=== PATIENT | female | born 1955 | race Caucasian/White ===

== ENCOUNTER → 2018-11-07 09:15 | Outpatient (CLI) | payer OTHER, MEDICAID, SELFPAY ==
[2018-11-07 10:12] LABS: Add Manual Diff / Slide Review NO; Basophils Absolute Auto 100 /uL (0-100); Basophils Percent Auto 0.7 % (0-2); Eosinophils Absolute Auto 900 /uL (0-450); Eosinophils Percent Auto 10.7 % (2-4); Hematocrit 36.7 % (36-46); Hemoglobin 12.1 g/dL (12.0-16.0); Lymphocytes Absolute Auto 2500 /uL (1100-4500); Mean Corpuscular Hemoglobin 27.5 PG (26-34); Mean Corpuscular Volume 83.3 fL (80-100); Monocytes Absolute Auto 700 /uL (0-900); Monocytes Percent Auto 8.8 % (3-14); Neutrophils Absolute Auto 3900 /uL (1500-7000); Neutrophils Percent Auto 48.8 % (50-75); Platelet Count 300 X10^3/uL (150-400); Red Blood Cell Count 4.41 X10^6/uL (4.0-5.2); Red Cell Distribution Width 14.6 % (11.6-14.8); White Blood Cell Count 8.1 X10^3/uL (4.5-11.0)
[2018-11-07 10:31] LABS: Alanine Aminotransferase 24 IU/L (9-52); Albumin 3.9 g/dL (3.5-5.0); Albumin Globulin Ratio 1.3 (1.0-2.8); Alkaline Phosphatase 84 U/L (38-126); Aspartate Aminotransferase 17 IU/L (14-36); BUN Creatinine Ratio 24.3 (6-22); Bilirubin Total 0.3 mg/dL (0.2-1.3); Blood Urea Nitrogen 17 mg/dL (7-17); Calcium 9.5 mg/dL (8.4-10.2); Carbon Dioxide 29 mmol/L (22-32); Chloride 102 mmol/L (98-107); Estimated Glomerular Filt Rate > 60.0 mL/min (>60); Glucose 162 mg/dL (80-110); HEMOLYSIS < 15 (0-50); Potassium 4.6 mmol/L (3.4-5.1); Sodium 138 mmol/L (137-145); Total Protein 6.9 g/dL (6.3-8.2)
[2018-11-07 10:57] LABS: Ferritin 8.1 ng/mL (11.1-264)
[2018-11-07 11:11] LABS: Vitamin B12 > 1000 pg/mL (239-931)
[2018-11-07 11:27] LABS: TSH w/ Reflex to FT4 3.52 uIU/mL (0.47-4.68)
[2018-11-07 11:54] LABS: Hemoglobin A1C% w Est Avg Glu 7.5 % (4.0-6.0)
== END ==
PROVIDERS: Family Provider Family Medicine; PCP Family Medicine; Visit Provider Family Medicine
DX: R10.9 Unspecified abdominal pain (principal); R53.83 Other fatigue; E66.9 Obesity, unspecified; I10 Essential (primary) hypertension; Z98.84 Bariatric surgery status
CPT/HCPCS: 36415; 80053; 82607; 82728; 83036; 84443; 85025

== ENCOUNTER → 2018-12-19 14:46 | Outpatient (CLI) | payer OTHER, MEDICAID, SELFPAY ==
--- NOTE | 2018-12-19 | DI.CT.S_ITS ---
PROCEDURE: CT ABDOMEN PELVIS W CON INDICATIONS: diseases of the digestive system TECHNIQUE: After the administration of oral and intravenous contrast, 5 mm thick sections acquired from the diaphragms to the symphysis. 5 mm thick coronal and sagittal reformats were performed. For radiation dose reduction, the following was used: automated exposure control, adjustment of mA and/or kV according to patient size. COMPARISON: None. FINDINGS: Image quality: Excellent. ABDOMEN: Lung bases: No acute consolidation. Scattered subsegmental atelectasis and/or scarring . Heart size is normal. Solid organs: Liver is normal in size and enhancement. Gallbladder surgically absent. Biliary system is non-dilated. Mild peripancreatic hazy attenuation at the head of the pancreas although this could be due to fatty infiltration. Spleen is normal in size and enhancement. No adrenal nodules. Kidneys are normal in size and enhancement, without hydronephrosis. Peritoneum and bowel: Postsurgical change involving the stomach. No evidence of bowel obstruction. No free fluid or air. Nodes and vessels: No retroperitoneal or mesenteric adenopathy. Aorta and inferior vena cava are normal in caliber. Miscellaneous: No definite ventral hernia is seen however there is a somewhat rim-enhancing fluid collection measuring approximately 4.2 x 3.3 cm on image 56 series 2. Unclear if this communicates with the peritoneal cavity. This is located in the superficial subcutaneous soft tissues PELVIS: Genitourinary: The Miscellaneous: No inguinal hernias or adenopathy. Bones: No suspicious bony lesions. No vertebral body compression fractures. IMPRESSION: No definite ventral hernia although loculated fluid collection in the midline anterior abdominal subcutaneous soft tissues raises possibility of postoperative seroma, hematoma (bland or infected). This closely abuts however may not communicate with the peritoneal cavity. Hazy attenuation in the region of the pancreatic head. Please correlate with pancreatic enzymes to exclude pancreatitis. Dictated by: Nikolas Peñaloza M.D. on 12/19/2018 at 16:36 Approved by: Nikolas Peñaloza M.D. on 12/19/2018 at 16:47
[2018-12-19 15:24] LABS: Hemoglobin A1C% w Est Avg Glu 7.7 % (4.0-6.0)
[2018-12-19 15:32] LABS: Alanine Aminotransferase 22 IU/L (9-52); Albumin 4.2 g/dL (3.5-5.0); Albumin Globulin Ratio 1.3 (1.0-2.8); Alkaline Phosphatase 88 U/L (38-126); Aspartate Aminotransferase 22 IU/L (14-36); BUN Creatinine Ratio 28.6 (6-22); Bilirubin Total 0.4 mg/dL (0.2-1.3); Blood Urea Nitrogen 20 mg/dL (7-17); Calcium 9.3 mg/dL (8.4-10.2); Carbon Dioxide 27 mmol/L (22-32); Chloride 103 mmol/L (98-107); Estimated Glomerular Filt Rate > 60.0 mL/min (>60); Globulin 3.3 g/dL (1.7-4.1); Glucose 122 mg/dL (80-110); HEMOLYSIS 38 (0-50); Potassium 4.5 mmol/L (3.4-5.1); Sodium 139 mmol/L (137-145); Total Protein 7.5 g/dL (6.3-8.2)
[2018-12-19 16:07] LABS: Ferritin 8.4 ng/mL (11.1-264)
== END ==
PROVIDERS: Family Provider Family Medicine; PCP Family Medicine; Visit Provider Surgery
DX: K92.9 Disease of digestive system, unspecified (principal); E03.9 Hypothyroidism, unspecified; R73.9 Hyperglycemia, unspecified; Z90.49 Acquired absence of other specified parts of digestive tract; Z98.890 Other specified postprocedural states
CPT/HCPCS: 36415; 74177; 80053; 82728; 83036; 84443; Q9967

== ENCOUNTER → 2019-02-11 12:53 | Outpatient (CLI) | payer OTHER, MEDICAID, SELFPAY ==
--- NOTE | 2019-02-11 12:58 | DI.RAD.S_ITS ---
PROCEDURE: FL UPPER GI SMALL BOWEL INDICATIONS: bloating and change in bowels COMPARISON: [facility], , UGI WITH SM BOWEL FOLLOW THRU, 12/14/2016, 8:07. 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 No suspicious abdominal calcifications. Visualized solid organ contours appear normal in size. No suspicious bony abnormalities. Esophagus: Air-contrast views demonstrate a normal mucosal pattern. On single-contrast views, there is normal peristalsis. No fixed strictures, extrinsic mass effects, or diverticula. No hiatal hernias. There is spontaneous gastro-esophageal reflux to level of the lower third of the esophagus. Stomach: Postsurgical changes presumably related to gastric bypass Small bowel: Duodenal folds appear normal in thickness. There is normal transit time of barium through the small intestine. Small bowel loops appear normal in caliber throughout. Jejunal and ileal folds are smooth and normal in thickness. No strictures, intraluminal masses, or extrinsic mass effects. The terminal ileum is identified and appears normal. IMPRESSION: Expected postsurgical appearance, status post gastric bypass Spontaneous gastroesophageal reflux to the level of the lower third of the esophagus. No evidence of bowel obstruction. Normal contrast material transit time. Dictated by: Nikolas Peñaloza M.D. on 02/11/2019 at 17:05 Approved by: Nikolas Peñaloza M.D. on 02/11/2019 at 17:07
== END ==
PROVIDERS: Family Provider Family Medicine; PCP Family Medicine; Visit Provider Family Medicine
DX: R11.0 Nausea (principal); K21.9 Gastro-esophageal reflux disease without esophagitis; R14.0 Abdominal distension (gaseous); R19.4 Change in bowel habit; Z98.84 Bariatric surgery status
CPT/HCPCS: 74245

== ENCOUNTER → 2019-10-29 11:24 | Outpatient (CLI) | payer OTHER, MEDICAID, SELFPAY ==
[2019-10-29 12:38] LABS: Add Manual Diff / Slide Review NO; Basophils Absolute Auto 100 /uL (0-100); Eosinophils Absolute Auto 300 /uL (0-450); Eosinophils Percent Auto 3.4 % (2-4); Hematocrit 38.1 % (36-46); Hemoglobin 12.3 g/dL (12.0-16.0); Lymphocytes Absolute Auto 2500 /uL (1100-4500); Lymphocytes Percent Auto 33.1 % (25-40); Mean Corpuscular HGB Conc 32.2 % (30-36); Mean Corpuscular Hemoglobin 26.4 PG (26-34); Monocytes Absolute Auto 800 /uL (0-900); Monocytes Percent Auto 10.7 % (3-14); Neutrophils Absolute Auto 3900 /uL (1500-7000); Neutrophils Percent Auto 51.8 % (50-75); Platelet Count 336 X10^3/uL (150-400); Red Blood Cell Count 4.65 X10^6/uL (4.0-5.2); Red Cell Distribution Width 14.6 % (11.6-14.8); White Blood Cell Count 7.6 X10^3/uL (4.5-11.0)
[2019-10-29 12:44] LABS: Hemoglobin A1C% w Est Avg Glu 10.1 % (4.0-6.0)
[2019-10-29 13:25] LABS: Alanine Aminotransferase 15 IU/L (<35); Albumin Globulin Ratio 1.3 (1.0-2.8); Alkaline Phosphatase 124 U/L (38-126); Aspartate Aminotransferase 19 IU/L (14-36); BUN Creatinine Ratio 27.7 (6-22); Bilirubin Total 0.5 mg/dL (0.2-1.3); Blood Urea Nitrogen 26 mg/dL (7-17); Calcium 9.7 mg/dL (8.4-10.2); Carbon Dioxide 29 mmol/L (22-32); Chloride 99 mmol/L (98-107); Cholesterol 172 mg/dL (140-199); Estimated Glomerular Filt Rate > 60.0 mL/min (>60); Glucose 201 mg/dL (80-110); HDL Cholesterol 37 mg/dL (40-60); HEMOLYSIS < 15 (0-50); LDL Cholesterol Calculated 102 mg/dL (<100); Potassium 4.9 mmol/L (3.4-5.1); Sodium 138 mmol/L (137-145); Triglycerides 165 mg/dL (35-150)
[2019-10-29 13:59] LABS: TSH w/ Reflex to FT4 2.75 uIU/mL (0.47-4.68)
[2019-10-29 15:53] LABS: Creatinine Urine Random 126.5 mg/dL
[2019-10-29 15:56] LABS: Microalbumi Creatinin Ratio Ur 7.9 ug/mg CR (<30)
== END ==
PROVIDERS: Family Provider Family Medicine; PCP Family Medicine; Referring Provider Family Medicine; Visit Provider Family Medicine
DX: E11.9 Type 2 diabetes mellitus without complications (principal); I10 Essential (primary) hypertension
CPT/HCPCS: 36415; 80053; 80061; 82043; 82570; 83036; 84443; 85025

== ENCOUNTER → 2020-09-23 11:40 | Outpatient (CLI) | payer OTHER, MEDICAID, SELFPAY ==
--- NOTE | 2020-09-23 11:42 | DI.MG.S_ITS ---
BILATERAL DIGITAL SCREENING MAMMOGRAM 3D/2D WITH CAD: 09/23/2020 CLINICAL: Routine screening. Comparison is made to exams dated: 10/19/2017 mammogram, 09/22/2016 mammogram, and 08/21/2015 mammogram - [facility]. The tissue of both breasts is predominantly fatty. Current study was also evaluated with a Computer Aided Detection (CAD) system. There are benign calcifications in both breasts. No significant masses, calcifications, or other findings are seen in either breast. There has been no significant interval change. IMPRESSION: BENIGN There is no mammographic evidence of malignancy. A 1 year screening mammogram is recommended. This exam was interpreted at Station ID: [id number]. NOTE: For mammograms, a report in lay terms will be sent to the patient. Approximately 15% of breast malignancies will not be visualized mammographically. In the management of a palpable breast mass, a negative mammogram must not discourage biopsy of a clinically suspicious lesion. Electronically Signed By: Lopez Anaya acr/penrad:09/23/2020 13:27:57 letter sent: Normal Exam ACR BI-RADS Category 2: Benign Finding(s) 3342F
== END ==
PROVIDERS: Family Provider Family Medicine; PCP Family Medicine; Referring Provider Family Medicine; Visit Provider Family Medicine
DX: Z12.31 Encounter for screening mammogram for malignant neoplasm of breast (principal)
CPT/HCPCS: 77063; 77067

== ENCOUNTER → 2021-02-08 10:16 | Outpatient (CLI) | payer OTHER, MEDICAID, SELFPAY ==
--- NOTE | 2021-02-08 10:20 | DI.ECHO.S_ITS ---
[facility] +---------+ : : [address] [place] : : : : [id number] : : : : Phone: [phone]+ Echocardiogram Report + + :Name: CHANDA COUCH Study Date: 02/08/2021 Height: 65 in : :[facility] ReadingLocation: Weight: 258 lb : : Gender: Female BSA: 2.2 m2 : :: 1955 Age: 66 yrs BP: 175/88 mmHg: :Reason For Study: Atrial fibrillation : :Ordering Physician: KINGSLEY, : :AXEL Performed By: Ishaan Gao : :Referring: AXEL WYNN : + + Interpretation Summary Mild concentric left ventricular hypertrophy with ejection fraction 60-65%. Both atria are normal in size. No significant valvular abnormality. Procedure: A two-dimensional transthoracic echocardiogram with color flow and Doppler was performed. The study quality was technically adequate. There is no prior echocardiogram noted for this patient. The patient was in normal sinus rhythm during the exam. Left Ventricle: The left ventricle is normal in size. There is mild concentric left ventricular hypertrophy. The ejection fraction is estimated to be 60-65%. There are no focal wall motion abnormalities. Right Ventricle: The right ventricle is normal in size and function. Atria: Both atria are normal in size. There is no Doppler evidence for an interatrial shunt. Mitral Valve: The mitral valve is normal in structure and function. There is no mitral regurgitation noted. Aortic Valve: The aortic valve is slightly calcified. There is no aortic valve stenosis. No aortic regurgitation is present. Tricuspid Valve: The tricuspid valve is normal in structure and function. There is trace tricuspid regurgitation. Pulmonary artery pressures cannot be estimated because of the lack of a measurable TR jet velocity but the IVC suggests a CVP of around 3 mmHg. Pulmonic Valve: The pulmonic valve is normal in structure and function. There is trace pulmonic regurgitation. Great Vessels: The aortic root is normal size. The dimensions of the ascending aorta are normal. The IVC is of normal diameter and collapses greater than 50% with a sniff. This suggests a low right atrial pressure of 3 mm Hg. Pericardium/ Pleura There is no pericardial effusion. There is no pleural effusion. MMode/2D Measurements & Calculations LVIDd: 5.3 cm LVOT diam: 2.3 cm LVIDs: 3.3 cm Ao root diam: 3.1 cm FS: 38.3 % asc Aorta Diam: 3.4 cm IVSd: 1.2 cm LVPWd: 1.1 cm LV ruiz. diameter/BSA (cm/m^2): 2.4 LV sys. diameter/BSA (cm/m^2): 1.5 LA A2 area: 23.0 cm2 RA long axis: 4.6 cm LA A4 area: 15.4 cm2 RA area: 14.9 cm2 LA length (vol): 5.1 cm RA vol: 40.7 ml LA vol: 58.5 ml RA : 18.5 ml/m2 LA vol index: 26.5 ml/m2 RVD1 (basal): 3.3 cm TAPSE: 3.0 cm Doppler Measurements & Calculations Ao V2 max: 181.0 cm/sec LVOT Max Dhaval: 122.1 cm/sec Ao V2 mean: 123.1 cm/sec LV V1 max P.0 mmHg Ao max P.1 mmHg LV V1 VTI: 24.5 cm Ao mean P.9 mmHg ANISHA(I,D): 3.2 cm2 Ao V2 VTI: 32.9 cm ANISHA(V,D): 2.9 cm2 sev ratio: 0.74 ANISHA indexed to BSA (cm^2/m^2): 1.4 MV E max dhaval: 101.2 cm/sec PA V2 max: 117.5 cm/sec MV A max dhaval: 94.7 cm/sec PA V2 mean: 83.3 cm/sec MV E/A: 1.1 PA mean P.1 mmHg Med Peak E' Dhaval: 8.6 cm/sec PA pr(Accel): 31.2 mmHg E/E' med: 11.7 Lat Peak E' Dhaval: 7.4 cm/sec E/E' lat: 13.7 E/e' average: 12.7 MV dec time: 0.27 sec SV(LVOT): 104.7 ml Electronically signed by: Marina Koch on Reading Physician:02/09/2021 10:44 AM
== END ==
PROVIDERS: Family Provider Family Medicine; PCP Family Medicine; Referring Provider Family Medicine; Visit Provider Family Medicine
DX: I48.91 Unspecified atrial fibrillation (principal)
CPT/HCPCS: 93306

== ENCOUNTER → 2021-12-30 09:13 | Outpatient (CLI) | payer OTHER, MEDICAID, SELFPAY ==
[2021-12-30 09:38] LABS: Add Manual Diff / Slide Review NO; Basophils Absolute Auto 100 /uL (0-100); Basophils Percent Auto 0.8 % (0-2); Eosinophils Absolute Auto 500 /uL (0-450); Eosinophils Percent Auto 5.1 % (2-4); Hematocrit 34.6 % (36-46); Hemoglobin 11.4 g/dL (12.0-16.0); Lymphocytes Absolute Auto 3300 /uL (1100-4500); Lymphocytes Percent Auto 34.8 % (25-40); Mean Corpuscular HGB Conc 32.9 % (30-36); Mean Corpuscular Hemoglobin 25.8 PG (26-34); Mean Corpuscular Volume 78.6 fL (80-100); Monocytes Absolute Auto 700 /uL (0-900); Monocytes Percent Auto 7.9 % (3-14); Neutrophils Absolute Auto 4800 /uL (1500-7000); Neutrophils Percent Auto 51.4 % (50-75); Platelet Count 325 X10^3/uL (150-400); Red Cell Distribution Width 16.1 % (11.6-14.8); White Blood Cell Count 9.4 X10^3/uL (4.5-11.0)
[2021-12-30 09:51] LABS: Alanine Aminotransferase 19 IU/L (<35); Albumin 4.1 g/dL (3.5-5.0); Albumin Globulin Ratio 1.4 (1.0-2.8); Alkaline Phosphatase 77 U/L (38-126); Aspartate Aminotransferase 24 IU/L (14-36); BUN Creatinine Ratio 34.1 (6-22); Bilirubin Total 0.3 mg/dL (0.2-1.3); Blood Urea Nitrogen 31 mg/dL (7-17); Calcium 9.4 mg/dL (8.4-10.2); Carbon Dioxide 31 mmol/L (22-32); Chloride 103 mmol/L (98-107); Cholesterol 138 mg/dL (140-199); Estimated Glomerular Filt Rate > 60 mL/min (>60); Glucose 120 mg/dL (80-110); HDL Cholesterol 38 mg/dL (40-60); HEMOLYSIS < 15 (0-50); LDL Cholesterol Calculated 73 mg/dL (<100); Potassium 4.5 mmol/L (3.4-5.1); Sodium 139 mmol/L (137-145); Total Protein 7.1 g/dL (6.3-8.2); Triglycerides 136 mg/dL (35-150)
[2021-12-30 10:39] LABS: TSH w/ Reflex to FT4 2.74 uIU/mL (0.47-4.68); Vitamin B12 743 pg/mL (239-931)
[2021-12-30 11:12] LABS: Microalbumi Creatinin Ratio Ur 6.5 ug/mg CR (<30); Microalbumin Urine Random 0.9 mg/dL (0-1.6)
== END ==
PROVIDERS: Family Provider Family Medicine; PCP Family Medicine; Referring Provider Physician Assistant; Visit Provider Physician Assistant
DX: E11.65 Type 2 diabetes mellitus with hyperglycemia (principal); E63.9 Nutritional deficiency, unspecified; I10 Essential (primary) hypertension; Z13.220 Encounter for screening for lipoid disorders; Z13.6 Encounter for screening for cardiovascular disorders
CPT/HCPCS: 36415; 80053; 80061; 82043; 82570; 82607; 83036; 84443; 85025

== ENCOUNTER → 2022-01-04 12:53 | Outpatient (CLI) | payer OTHER, MEDICAID, SELFPAY ==
--- NOTE | 2022-01-04 12:55 | DI.MG.S_ITS ---
BILATERAL DIGITAL SCREENING MAMMOGRAM 3D/2D WITH CAD: 01/04/2022 CLINICAL: Routine screening. Comparison is made to exams dated: 09/23/2020 mammogram, 10/19/2017 mammogram, and 09/22/2016 mammogram - [facility]. The tissue of both breasts is predominantly fatty. Current study was also evaluated with a Computer Aided Detection (CAD) system. There are benign calcifications in both breasts. No significant masses, calcifications, or other findings are seen in either breast. There has been no significant interval change. IMPRESSION: BENIGN There is no mammographic evidence of malignancy. A 1 year screening mammogram is recommended. This exam was interpreted at Station ID: [id number]. NOTE: For mammograms, a report in lay terms will be sent to the patient. Approximately 15% of breast malignancies will not be visualized mammographically. In the management of a palpable breast mass, a negative mammogram must not discourage biopsy of a clinically suspicious lesion. Electronically Signed By: Daphne cordova/bina:01/04/2022 15:36:54 letter sent: Normal Exam ACR BI-RADS Category 2: Benign Finding(s) 3342F
== END ==
PROVIDERS: Family Provider Family Medicine; PCP Family Medicine; Referring Provider Family Medicine; Visit Provider Family Medicine
DX: Z12.31 Encounter for screening mammogram for malignant neoplasm of breast (principal)
CPT/HCPCS: 77063; 77067

== ENCOUNTER → 2022-01-06 12:41 | Outpatient (CLI) | payer OTHER, MEDICAID, SELFPAY ==
[2022-01-06 13:37] LABS: COVID19 -Nasal RAPID Negative (Negative)
== END ==
PROVIDERS: Family Provider Family Medicine; PCP Family Medicine; Referring Provider Internal Medicine; Visit Provider Internal Medicine
DX: Z20.822 Contact with and (suspected) exposure to COVID-19 (principal)
CPT/HCPCS: 87635; C9803

== ENCOUNTER → 2022-01-07 08:50 | Outpatient (CLI) | payer OTHER, MEDICAID, SELFPAY ==
--- NOTE | 2022-01-16 13:43 | PM.PFT.1 ---
Pulmonary Function Test Referral & Results Date Patient Seen: 01/07/22 Requesting provider: Tluio Owens Results: The spirometry demonstrates an FVC of 2.70 L which is 82% of predicted. The FEV1 was measured at 2.19 L which is 87% of predicted. The FEV1/FVC ratio was 81 which is 105% of predicted. Following the administration of bronchodilator there was a 30% improvement in FEF 25-75% Lung volumes show an SVC of 2.97 L which is 97% of predicted. The diffusing capacity was measured at 19.47 which is 76% of predicted. No hemoglobin value was provided, so no correction for potential anemia could be made, if appropriate. The maximum voluntary ventilation was normal Interpretation: This study demonstrates probably normal spirometry. There is minimal reduction FEV1 and evidence of minimal improvement in small airway flow after bronchodilator which might suggest the presence of very mild obstructive lung disease Diffusing capacity is minimally reduced as well suggesting disease at the capillary alveolar level Clinical correlation suggested
== END ==
PROVIDERS: Family Provider Family Medicine; PCP Family Medicine; Referring Provider Family Medicine; Visit Provider Family Medicine
DX: Z86.16 Personal history of COVID-19 (principal); E11.65 Type 2 diabetes mellitus with hyperglycemia; R06.00 Dyspnea, unspecified; J98.8 Other specified respiratory disorders
CPT/HCPCS: 94060; 94726; 94729

== ENCOUNTER → 2022-06-14 13:00 | Outpatient (CLI) | payer MEDICARE, MEDICAID, SELFPAY ==
[2022-06-14 14:04] LABS: COVID19 -Nasal RAPID Negative (Negative)
--- NOTE | 2022-06-14 15:18 | DI.ECHO.S_ITS ---
Interpretation Summary The ejection fraction is estimated to be 60-65%. Diastolic parameters suggest probable normal left ventricular diastolic function and normal filling pressures. The right ventricle is normal in size and function. The left atrium is mildly dilated. No significant valvular abnormality. Pulmonary artery pressures cannot be estimated because of the lack of a measurable TR jet velocity. Procedure: A two-dimensional transthoracic echocardiogram with color flow and Doppler was performed. The study quality was technically adequate. Comparison is made with the echocardiogram of 02/08/2021. Left Ventricle: The left ventricle is normal in size and wall thickness. The ejection fraction is estimated to be 60-65%. Diastolic parameters suggest probable normal left ventricular diastolic function and normal filling pressures. Right Ventricle: The right ventricle is normal in size and function. Atria: The left atrium is mildly dilated. Right atrial size is normal. There is no Doppler evidence for an interatrial shunt. Mitral Valve: The mitral valve is normal in structure and function. There is trace mitral regurgitation. Aortic Valve: The aortic valve is trileaflet. The aortic valve opens well. The aortic valve is slightly calcified. There is no aortic valve stenosis. No aortic regurgitation is present. Tricuspid Valve: The tricuspid valve is normal in structure and function. There is trace tricuspid regurgitation. Pulmonary artery pressures cannot be estimated because of the lack of a measurable TR jet velocity. Pulmonic Valve: The pulmonic valve leaflets are thin and pliable; valve motion is normal. There is no pulmonic valvular regurgitation. Great Vessels: The aortic root is normal size. The dimensions of the ascending aorta are normal. The IVC is of normal diameter and collapses greater than 50% with a sniff. This suggests a low right atrial pressure of 3 mm Hg. Pericardium/ Pleura There is no pericardial effusion. There is no pleural effusion. MMode/2D Measurements & Calculations LVIDd: 5.6 cm LVOT diam: 2.4 cm LVIDs: 3.3 cm Ao root diam: 3.4 cm FS: 41.8 % asc Aorta Diam: 3.9 cm EPSS: 0.41 cm Ao Arch Diam (Prox Trans): 3.4 cm IVSd: 0.73 cm LVPWd: 0.97 cm LV ruiz. diameter/BSA (cm/m^2): 2.6 LV sys. diameter/BSA (cm/m^2): 1.5 LA A2 area: 24.0 cm2 RA long axis: 5.4 cm LA A4 area: 20.1 cm2 RA area: 17.0 cm2 LA length (vol): 5.4 cm RA vol: 45.1 ml LA vol: 76.5 ml RA : 21.2 ml/m2 LA vol index: 35.9 ml/m2 IVC diam: 0.88 cm RVD1 (basal): 3.6 cm RVD2 (mid): 2.9 cm TAPSE: 2.9 cm Doppler Measurements & Calculations Ao V2 max: 149.6 cm/sec LVOT Max Dhaval: 102.1 cm/sec Ao V2 mean: 106.3 cm/sec LV V1 max P.2 mmHg Ao max P.0 mmHg LV V1 VTI: 24.7 cm Ao mean P.1 mmHg ANISHA(I,D): 3.3 cm2 Ao V2 VTI: 33.2 cm ANISHA(V,D): 3.0 cm2 sev ratio: 0.74 ANISHA indexed to BSA (cm^2/m^2): 1.6 MV E max dhaval: 96.9 cm/sec PA V2 max: 94.6 cm/sec MV A max dhaval: 89.3 cm/sec PA V2 mean: 66.9 cm/sec MV E/A: 1.1 PA mean P.0 mmHg Med Peak E' Dhaval: 8.3 cm/sec PA pr(Accel): 31.0 mmHg E/E' med: 11.7 Lat Peak E' Dhaval: 7.8 cm/sec E/E' lat: 12.5 E/e' average: 12.1 MV dec time: 0.23 sec SV(LVOT): 109.9 ml Reading Physician:04:10 PM
--- NOTE | 2022-06-15 21:26 | DI.NM.S_ITS ---
DATE OF SERVICE: 06/15/2022 PROCEDURE: Pharmacological perfusion study. INDICATION: Shortness of breath, paroxysmal AFib, hypertension and hyperlipidemia. RADIOPHARMACEUTICAL: 25.6 millicurie technetium-99m Myoview IV was injected at stress and 25.2 millicurie technetium-99m Myoview IV was injected at rest. CARDIAC STRESS: The patient underwent IV Lexiscan perfusion study under the supervision of an attending staff. The patient had minimal dyspnea. No chest discomfort. Baseline rhythm was sinus. During stress, no convincing ischemic changes seen. No significant arrhythmias seen. RAW DATA: There is a breast shadow seen. There is also increased subdiaphragmatic activity. The patient's weight is 240 pounds. GATED STUDY: Stress LV ejection fraction 71 percent without any obvious wall motion abnormalities. Resting end-diastolic volume 118 mL. TID ratio 0.83, which is within normal limits. MYOCARDIAL PERFUSION SCAN: Stress supine, resting supine and stress prone images were compared to each other. Stress supine images revealed large size, moderate to severely decreased perfusion of inferior wall extending into the inferoapex, as well as inferoseptum. Resting supine images revealed small size, mildly decreased perfusion of basal anterior wall, as well as basal inferior wall and inferoapex. During stress prone images, there was significant improvement in inferior wall and inferoseptal defect. However, the patient remained having mildly decreased perfusion of distal inferior wall and inferoapex. The stress prone images also revealed mildly decreased perfusion of mid anterior wall and distal anteroseptum, which was not seen during stress supine images. CONCLUSION: I will call this study likely a normal myocardial perfusion study with evidence of diaphragmatic tissue attenuation artifact, which got significantly improved during stress prone images. There is evidence of shifting tissue attenuation artifact, which was seen during stress prone images in the mid anterior wall and distal anteroseptum, which was not seen during stress supine images. Normal wall motion goes against the diagnosis of previous transmural myocardial infarction. The patient's weight is 240 pounds. Breast shadow, as well as increased subdiaphragmatic activity seen. Left ventricular function is preserved. No obvious reversible ischemia. Transient ischemic dilatation ratio 0.83, which is within normal limits. Hence, overall this is a low-risk myocardial perfusion scan. Rose Dixon - DERRICK/troy/kathy doc#: [id number]/job#: [id number] dd: 06/15/2022 16:53:00 dt: 06/15/2022 21:19:00 DICTATING MD/COPIES TO: Ariadne Santana MD COPIES MNE: LYN;
== END ==
PROVIDERS: Family Provider Family Medicine; PCP Family Medicine; Referring Provider Internal Medicine Cardiovascular Disease; Visit Provider Internal Medicine Cardiovascular Disease
DX: R06.00 Dyspnea, unspecified (principal); I48.0 Paroxysmal atrial fibrillation; I10 Essential (primary) hypertension; E78.5 Hyperlipidemia, unspecified; Z20.822 Contact with and (suspected) exposure to COVID-19
CPT/HCPCS: 78452; 87635; 93017; 93306; A9502; J2785

== ENCOUNTER → 2022-07-26 13:03 | Outpatient (CLI) | payer MEDICARE, MEDICAID, SELFPAY ==
[2022-07-26 13:28] LABS: Hemoglobin A1C% w Est Avg Glu 7.7 % (4.0-6.0)
== END ==
PROVIDERS: Family Provider Family Medicine; PCP Family Medicine; Referring Provider Family Medicine; Visit Provider Family Medicine
DX: E11.65 Type 2 diabetes mellitus with hyperglycemia (principal)
CPT/HCPCS: 36415; 83036

== ENCOUNTER 2022-10-18 08:02 | Emergency (ER) | payer MEDICARE, MEDICAID, SELFPAY ==
[2022-10-18 09:02] VITALS: BP 119/59; PULSE 64; RESP 20; TEMP 36.6; O2SAT 99; BMI 37.9
--- NOTE | 2022-10-18 09:07 | DI.RAD.S_ITS ---
PROCEDURE: XR RIBS RT MIN 3V W CXR 1V INDICATIONS: fall onto bathtub under right breast TECHNIQUE: 2 views of the right ribs were acquired, along with a single view chest. COMPARISON: None. FINDINGS: Surgical changes and devices: None. Bones and chest wall: No fractures or dislocations. No suspicious bony lesions. Overlying soft tissues appear unremarkable. Lungs and pleura: No pleural effusions or pneumothorax. Lungs appear clear. Mediastinum: Mediastinal contours appear normal. Heart size is normal. IMPRESSION: No displaced fracture. No pneumothorax. Dictated by: Tucker Bustillo M.D. on 10/18/2022 at 9:46 Approved by: Tucker Bustillo M.D. on 10/18/2022 at 9:47
--- NOTE | 2022-10-18 09:37 | ED.FALL ---
HPI - Fall General Chief Complaint: Fall Stated Complaint: fell T-1 hit RT side under breast hard to breathe Time Seen by Provider: 10/18/22 09:29 Source: patient Mode of arrival: Wheelchair History of Present Illness HPI Narrative: Patient brought here by her friend for complaints of right rib pain/injury that occurred last night. Patient has chronic knee pain. She was in her bathroom on her knees bending over and cleaning her bath tub. Her knee was painful and she decided to stand up, in the process her knee gave out, and she fell down hitting the edge of the tub with the ribs on the right side just below her right breast. No loss of consciousness. Denies any other injuries. Had difficulty sleeping through the night due to pain. No dyspnea. No hemoptysis Related Data Home Medications Medication Instructions Recorded Confirmed thiamine HCl (vitamin B1) 50 mg 50 mg PO DAILY 01/04/21 07/26/22 tablet zinc 50 mg tablet 50 mg PO DAILY 01/04/21 07/26/22 ascorbate calcium (vitamin C) 500 1 g PO DAILY 12/29/21 07/26/22 mg tablet cholecalciferol (vitamin D3) 25 2,000 unit PO DAILY 12/29/21 07/26/22 mcg (1,000 unit) capsule cyanocobalamin (vitamin B-12) 5,000 mcg PO DAILY 12/29/21 07/26/22 5,000 mcg capsule Previous Rx's Medication Instructions Recorded lisinopril 20 1 tab PO DAILY #90 tabs 10/05/21 mg-hydrochlorothiazide 25 mg tablet simvastatin 20 mg tablet See Rx Instructions .Route 12/06/21 .COMPLEX #90 tabs blood sugar diagnostic (Blood #100 ea 02/24/22 Glucose Test strips) blood-glucose meter #1 ea 02/24/22 lancets 33 gauge (BD Ultra Fine #100 ea 02/24/22 Lancets) clobetasol 0.05 % topical gel See Rx Instructions .Route 02/25/22 .COMPLEX #30 grams venlafaxine 150 mg See Rx Instructions .Route 02/25/22 capsule,extended release 24 hr .COMPLEX #90 caps Disabled Parking #1 ea 03/10/22 gabapentin 300 mg capsule See Rx Instructions .Route 06/01/22 .COMPLEX #270 caps metformin 1,000 mg tablet See Rx Instructions .Route 06/01/22 .COMPLEX #180 tabs levothyroxine 75 mcg tablet See Rx Instructions .Route 06/24/22 .COMPLEX #90 tabs polysaccharide iron complex 150 mg 150 mg PO DAILY #90 caps 06/27/22 iron capsule (Ferrex) pantoprazole 20 mg tablet,delayed 20 mg PO DAILY #90 tabs 06/29/22 release hydroxyzine HCl 50 mg tablet See Rx Instructions .Route 07/26/22 .COMPLEX #90 tabs metoprolol succinate 50 mg 50 mg PO BID #180 tabs 07/26/22 tablet,extended release 24 hr rivaroxaban 20 mg tablet (Xarelto) 20 mg PO DAILY #90 tabs 07/26/22 hydrocodone 5 mg-acetaminophen 325 1 tab PO Q6H PRN pain #7 tabs 10/18/22 mg tablet ondansetron 4 mg disintegrating 4 mg PO Q8H PRN nausea and 10/18/22 tablet vomiting #10 tabs semaglutide 0.25 mg or 0.5 mg (2 0.5 mg (0.8 mL) SUBCUT QWEEK #3 mL 10/19/22 mg/3 mL) subcutaneous pen injector (Ozempic) Allergies Allergy/AdvReac Type Severity Reaction Status Date / Time No Known Drug Allergies Allergy Verified 10/18/22 09:08 Review of Systems Review of Systems Narrative: GENERAL: negative chills, fatigue, malaise, fever, sweats. HEENT: negative sinus pain, ear pain, sore throat RESPIRATORY: negative dyspnea, cough CARDIOVASCULAR: negative chest pain, palpitations GASTROINTESTINAL: negative nausea, vomiting, abdominal pain : negative dysuria, frequency, hematuria MUSCULOSKELETAL: Positive muscle or bony pain SKIN: negative rash, skin lesions NEUROLOGIC: negative weakness, numbness ROS Unobtainable: All systems reviewed & are unremarkable except as noted in HPI and below Patient History Medical History (Updated 10/18/22 @ 09:53 by Karl Forman MD) Ankle pain Chicken pox (1972) Depression (1998) Diabetes mellitus Hayfever Hearing loss Hypertension Hypothyroidism Osteoarthritis Osteoporosis Panic attack Surgical History (System 06/25/21 @ 12:50 by Shereen Simon) Anesthesia History of esophagogastroduodenoscopy (EGD) (09/26/17) History of gastric bypass (2006) History of knee replacement (2009) History of tonsillectomy (1965) Status post appendectomy Status post delivery (1976) Status post delivery (1980) Status post laparoscopic cholecystectomy (11/09/17) Family History (System 06/25/21 @ 12:50 by Shereen Simon) Brother Age: 62 Aspergers' syndrome Hypertension High cholesterol Child Age: 44 Gastroparesis History of drug abuse in remission Child Age: 40 Anxiety and depression Child Age: 24 PTSD (post-traumatic stress disorder) ADHD (attention deficit hyperactivity disorder) Social anxiety disorder RAD (reactive airway disease) OCD (obsessive compulsive disorder) Depression Mother High cholesterol ALS (amyotrophic lateral sclerosis) Sister Age: 60 Autism Hypertension High cholesterol Social History (System 06/25/21 @ 12:50 by Shereen Simon) marital status: Smoking Status: Former smoker alcohol intake: never substance use type: does not use Smoking Status: Former smoker alcohol intake frequency: holidays/special occasions only Substance Use Type: does not use Exam Narrative Exam Narrative: GENERAL: in no distress, not toxic not dyspneic HEAD: Normocephalic. EYES: Pupils equal round ENT: Mucous membranes moist. NECK: Trachea midline. CARDIOVASCULAR: Regular rate and rhythm without murmurs RESPIRATORY: Clear to auscultation. Breath sounds equal bilaterally. No wheezes, rales, or rhonchi. GASTROINTESTINAL: Abdomen soft, non-tender BACK: No flank tenderness. NEURO: AOx4. SKIN: Warm and dry, no bruising to the right anterior lower ribs. However it is tender to touch. No crepitus no flail. No abrasion. PSYCH: Not anxious, is cooperative Initial Vital Signs Initial Vital Signs: Vital Signs Temperature 97.9 F 10/18/22 09:02 Pulse Rate 64 10/18/22 09:02 Respiratory Rate 20 10/18/22 09:02 Blood Pressure 119/59 L 10/18/22 09:02 Pulse Oximetry 99 10/18/22 09:02 Oxygen Delivery Method Room Air 10/18/22 09:02 Course Orders Ordered: Discontinued Medications Hydrocodone Bitart/Acetaminophen (Hydrocodone/Acet 5/325 Tablet) 1 tab PO NOW ONE Stop: 10/18/22 09:37 Last Admin: 10/18/22 09:52 Dose: 1 tab Documented By: SUZANNE Ondansetron HCl (Ondansetron 4 Mg Odt) 4 mg SL NOW ONE Stop: 10/18/22 09:37 Last Admin: 10/18/22 09:52 Dose: 4 mg Documented By: SUZANNE Vital Signs Vital signs: Vital Signs - 8 hr 10/18/22 09:02 Temperature 97.9 F Pulse Rate 64 Respiratory Rate 20 Blood Pressure 119/59 L Pulse Oximetry 99 Oxygen Delivery Method Room Air MDM - Fall Imaging Data Chest x-ray: Radiologist's Impression: PROCEDURE:? XR RIBS RT MIN 3V W CXR 1V ? INDICATIONS:? fall onto bathtub under right breast ? TECHNIQUE:? 2 views of the right ribs were acquired, along with a single view chest.? ? COMPARISON:? None. ? FINDINGS:? ? Surgical changes and devices:? None.? ? Bones and chest wall:? No fractures or dislocations.? No suspicious bony lesions.? Overlying soft tissues appear unremarkable.? ? Lungs and pleura:? No pleural effusions or pneumothorax.? Lungs appear clear.? ? Mediastinum:? Mediastinal contours appear normal.? Heart size is normal.? ? IMPRESSION:? No displaced fracture.? No pneumothorax. ? ? Dictated by: Tucker Bustillo M.D. on 10/18/2022 at 9:46 ? ? Approved by: Tucker Bustillo M.D. on 10/18/2022 at 9:47 ? [facility] Narrative Medical decision making narrative: Patient brought here by her friend for complaints of right rib pain/injury that occurred last night. Patient has chronic knee pain. She was in her bathroom on her knees bending over and cleaning her bath tub. Her knee was painful and she decided to stand up, in the process her knee gave out, and she fell down hitting the edge of the tub with the ribs on the right side just below her right breast. No loss of consciousness. Denies any other injuries. Had difficulty sleeping through the night due to pain. No dyspnea. No hemoptysis After history and exam hydrocodone Zofran right rib x-rays with chest ordered [facility] CC: Right rib pain Complicating co-morbidities: No previous lung disease or rib fracture Data collected from: Patient and friend Medical records reviewed: No previous visits here for rib injury Differential considered: Includes but not limited to pneumothorax rib fracture rib contusion Exam documented above, pertinent findings include: Tender right anterior lower ribs Imaging studies independently reviewed: Right rib with chest x-ray, no rib fracture Treatments: [place] Zofran incentive spirometer Re-evaluations: Patient tolerated incentive spirometer very well. Reviewed x-ray imaging with patient. At this time will treat clinically for nonradiating graphic rib fracture. Informed patient it may take 7 or 10 days to see occult fracture. Incentive spirometer reviewed with patient. Pain is controlled. Patient has a chain saw driver. She does agree for short course of pain medication and will transition to ibuprofen and Tylenol Discussion: Appropriate for discharge home. Patient tolerating incentive spirometer. Return precautions reviewed with her. She does understand may need repeat imaging 7 or 10 days if not improving and today may have nonradiating graphic rib fracture/occult fracture. Treatment is unchanged. Patient does have family doctor to follow up with. 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 Exam and imaging are reassuring today Diagnosis: Rib contusion Discharge Plan Departure Patient Disposition: Home Clinical Impression: Contusion of rib on right side Instructions: How to Use an Incentive Spirometer, DI for Rib Contusion Activity Restrictions/Additional Instructions: No driving or operating machinery today or when taking prescribed pain medication. See family doctor in a week for re-evaluation. You may need repeat x-rays of your ribs if not improving 7 or 10 days. Sometimes on initial x-rays, fractures do not show on day 1 or day 2. Use incentive spirometer every hour while awake.. May continue with ibuprofen or Tylenol for pain. Prescriptions: New hydrocodone-acetaminophen 5-325 mg tablet 1 tab PO Q6H PRN (Reason: pain) Qty: 7 0RF ondansetron 4 mg tablet,disintegrating 4 mg PO Q8H PRN (Reason: nausea and vomiting) Qty: 10 0RF No Action thiamine HCl (vitamin B1) 50 mg tablet 50 mg PO DAILY zinc 50 mg tablet 50 mg PO DAILY ascorbate calcium (vitamin C) 500 mg tablet 1 g PO DAILY cholecalciferol (vitamin D3) 25 mcg (1,000 unit) capsule 2,000 unit PO DAILY hydroxyzine HCl 50 mg tablet See Rx Instructions .ROUTE .COMPLEX Qty: 90 1RF Dose Instruction: TAKE ONE TABLET BY MOUTH FOUR TIMES A DAY NEEDED FOR ANXIETY Rx Instructions: TAKE ONE TABLET BY MOUTH FOUR TIMES A DAY NEEDED FOR ANXIETY metoprolol succinate 50 mg tablet extended release 24 hr 50 mg PO BID Qty: 180 2RF Xarelto 20 mg tablet 20 mg PO DAILY Qty: 90 0RF Rx Instructions: with evening meal cyanocobalamin (vitamin B-12) 5,000 mcg capsule 5,000 mcg PO DAILY (DME) Disabled Parking See Rx Instructions .ROUTE .MEDSUPPLY Qty: 1 0RF Rx Instructions: I find this patient to be medically disabled and qualified for Disabled Parking as indicated, and signed, on the Accompanying Disabled Parking Application for Individuals lisinopril-hydrochlorothiazide 20-25 mg tablet 1 tab PO DAILY Qty: 90 3RF simvastatin 20 mg tablet See Rx Instructions .ROUTE .COMPLEX Qty: 90 1RF Dose Instruction: TAKE ONE TABLET BY MOUTH NIGHTLY AT BEDTIME Rx Instructions: TAKE ONE TABLET BY MOUTH NIGHTLY AT BEDTIME (DME) blood-glucose meter Kit See Rx Instructions .ROUTE .MEDSUPPLY Qty: 1 0RF Rx Instructions: Use to test blood glucose ONCE DAILY (DME) Blood Glucose Test Strip See Rx Instructions .ROUTE .MEDSUPPLY Qty: 100 4RF Rx Instructions: Use to test blood glucose ONCE DAILY (DME) lancets [BD Ultra Fine Lancets] 33 gauge misc See Rx Instructions .ROUTE .MEDSUPPLY Qty: 100 4RF Rx Instructions: Use to test blood glucose ONCE DAILY clobetasol 0.05 % gel See Rx Instructions .ROUTE .COMPLEX Qty: 30 0RF Dose Instruction: apply to affected area twice daily after washing with soap and water. Use for 2 weeks only. Rx Instructions: apply to affected area twice daily after washing with soap and water. Use for 2 weeks only. venlafaxine 150 mg capsule,extended release 24hr See Rx Instructions .ROUTE .COMPLEX Qty: 90 1RF Dose Instruction: TAKE ONE CAPSULE BY MOUTH ONE TIME DAILY Rx Instructions: TAKE ONE CAPSULE BY MOUTH ONE TIME DAILY metformin 1,000 mg tablet See Rx Instructions .ROUTE .COMPLEX Qty: 180 0RF Dose Instruction: TAKE ONE TABLET BY MOUTH TWICE DAILY Rx Instructions: TAKE ONE TABLET BY MOUTH TWICE DAILY gabapentin 300 mg capsule See Rx Instructions .ROUTE .COMPLEX Qty: 270 0RF Dose Instruction: TAKE THREE CAPSULES BY MOUTH THREE TIMES DAILY for nerve pain in left arm Rx Instructions: TAKE THREE CAPSULES BY MOUTH THREE TIMES DAILY for nerve pain in left arm levothyroxine 75 mcg tablet See Rx Instructions .ROUTE .COMPLEX Qty: 90 1RF Dose Instruction: TAKE 1 TABLET BY MOUTH ONCE DAILY IN THE MORNING Rx Instructions: TAKE 1 TABLET BY MOUTH ONCE DAILY IN THE MORNING polysaccharide iron complex [Ferrex 150] 150 mg iron capsule 150 mg PO DAILY Qty: 90 3RF pantoprazole 20 mg tablet,delayed release (DR/EC) 20 mg PO DAILY Qty: 90 1RF Ozempic 0.25 mg or 0.5 mg (2 mg/3 mL) pen injector 0.5 mg SUBCUT QWEEK Qty: 3 2RF Rx Instructions: administer 0.5mg subcutaneously once weekly, please cancel previous rx for the generic wegovy Referrals: Tulio Owens MD [Primary Care Provider] - Stand Alone Forms: Patient Portal/API
[2022-10-18] MEDS: ONDANSETRON 4 MG ODT SL (09:52)
[2022-10-18] MEDS: HYDROCODONE/ACET 5/325 TABLET 1 TAB PO (09:52)
[2022-10-18 10:12] VITALS: BP 121/62; PULSE 66; RESP 18; O2SAT 99
== END 2022-10-18 10:13 | disposition home or self-care (01) ==
PROVIDERS: Emergency Provider Emergency Medicine; Family Provider Family Medicine; PCP Family Medicine
DX: S20.211A Contusion of right front wall of thorax, initial encounter (principal); W18.30XA Fall on same level, unspecified, initial encounter
CPT/HCPCS: 71101; 99283

== ENCOUNTER → 2022-11-03 15:48 | Outpatient (CLI) | payer MEDICARE, MEDICAID, SELFPAY ==
--- NOTE | 2022-11-03 15:51 | DI.RAD.S_ITS ---
PROCEDURE: XR FINGER RT MIN 2V INDICATIONS: finger pain swelling osteomyolitis, distal end of 3rd digit TECHNIQUE: AP hand, 2 views of the 3rd finger(s) acquired. COMPARISON: None. FINDINGS: Bones: No fractures or dislocations. Subtle bony erosion in the tuft of the 3rd distal phalanx. Soft tissues: No suspicious soft tissue calcifications. Soft tissue edema in the distal 3rd finger. IMPRESSION: 1. Subtle bony erosion in the tuft of the 3rd distal phalanx suspicious for osteomyelitis. Dictated by: Davin Caceres M.D. on 11/03/2022 at 16:26 Approved by: Davin Caceres M.D. on 11/03/2022 at 16:26
== END ==
PROVIDERS: Family Provider Family Medicine; PCP Family Medicine; Referring Provider Family Medicine; Visit Provider Family Medicine
DX: M85.841 Other specified disorders of bone density and structure, right hand (principal)
CPT/HCPCS: 73140

== ENCOUNTER → 2023-05-31 08:46 | Outpatient (CLI) | payer MEDICARE, MEDICAID, SELFPAY ==
--- NOTE | 2023-05-31 | DI.US.S_ITS ---
PROCEDURE: US CAROTID DOPPLER BI INDICATIONS: CAROTID ARTERY CALCIFICATION ON DENTAL CT TECHNIQUE: Color and pulse Doppler interrogation was performed of both carotid systems, with image documentation and velocity measurements. COMPARISON: None. FINDINGS: Stenosis calculations are based on SRU (Society of Radiologists in Ultrasound) criteria. Right side: Brachial blood pressure: 105/63 mm Hg. Common carotid artery peak systolic velocity: 130 cm/sec. Internal carotid artery peak systolic velocity: 118 cm/sec. Internal carotid artery end diastolic velocity: 32 cm/sec. External carotid artery peak systolic velocity: 111 cm/sec. ICA/CCA peak systolic ratio: 0.9 . Ledesma scale imaging description: Mild plaque at the bifurcation Percent internal carotid artery stenosis: Less than 50% . Vertebral artery: Flow direction is antegrade. Left side: Brachial blood pressure: 100/59 mm Hg. Common carotid artery peak systolic velocity: 115 cm/sec. Internal carotid artery peak systolic velocity: 93 cm/sec. Internal carotid artery end diastolic velocity: 32 cm/sec. External carotid artery peak systolic velocity: 109 cm/sec. ICA/CCA peak systolic ratio: 0.8 . Ledesma scale imaging description: Mild to moderate plaque at the bifurcation Percent internal carotid artery stenosis: Less than 50% . Vertebral artery: Flow direction is antegrade. IMPRESSION: Less than 50% stenosis of the internal carotid arteries bilaterally. Dictated by: Rena Jenkins M.D. on 05/31/2023 at 16:40 Approved by: Rena Jenkins M.D. on 05/31/2023 at 16:41
== END ==
PROVIDERS: Family Provider Family Medicine; PCP Family Medicine; Referring Provider Internal Medicine Cardiovascular Disease; Visit Provider Internal Medicine Cardiovascular Disease
DX: I65.23 Occlusion and stenosis of bilateral carotid arteries (principal)
CPT/HCPCS: 93880

== ENCOUNTER → 2023-06-19 14:19 | Outpatient (CLI) | payer MEDICARE, MEDICAID, SELFPAY ==
[2023-06-19 15:32] LABS: Hemoglobin A1C% w Est Avg Glu 8.1 % (4.0-6.0)
[2023-06-19 15:36] LABS: Alanine Aminotransferase 24 IU/L (<35); Albumin 3.9 g/dL (3.5-5.0); Albumin Globulin Ratio 1.2 (1.0-2.8); Alkaline Phosphatase 97 U/L (38-126); Aspartate Aminotransferase 27 IU/L (14-36); BUN Creatinine Ratio 24.6 (6-22); Bilirubin Total 0.5 mg/dL (0.2-1.3); Blood Urea Nitrogen 16 mg/dL (7-17); Calcium 9.6 mg/dL (8.4-10.2); Carbon Dioxide 27 mmol/L (22-32); Chloride 102 mmol/L (98-107); Cholesterol 186 mg/dL (140-199); Estimated Glomerular Filt Rate > 60 mL/min (>60); Globulin 3.3 g/dL (1.7-4.1); Glucose 149 mg/dL (80-110); HDL Cholesterol 51 mg/dL (40-60); HEMOLYSIS < 15 (0-50); LDL Cholesterol Calculated 105 mg/dL (<100); Potassium 4.2 mmol/L (3.4-5.1); Sodium 135 mmol/L (137-145); Total Protein 7.2 g/dL (6.3-8.2); Triglycerides 150 mg/dL (35-150)
[2023-06-19 16:13] LABS: Creatinine Urine Random 81.3 mg/dL
[2023-06-19 16:17] LABS: Microalbumin Urine Random 0.9 mg/dL (0-1.6)
== END ==
PROVIDERS: Family Provider Family Medicine; PCP Family Medicine; Referring Provider Family Medicine; Visit Provider Family Medicine
DX: E11.65 Type 2 diabetes mellitus with hyperglycemia (principal); I10 Essential (primary) hypertension; E78.5 Hyperlipidemia, unspecified
CPT/HCPCS: 36415; 80053; 80061; 82043; 82570; 83036

== ENCOUNTER 2023-08-11 19:01 | Emergency (ER) | payer MEDICARE, MEDICAID, SELFPAY ==
[2023-08-11] VITALS (11 sets, daily range): BP systolic 91–169; BP diastolic 52–74; PULSE 58–67; RESP 13–24; TEMP 36.8; O2SAT 92–100; BMI 39.6
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
[2023-08-11 19:57] LABS: Add Manual Diff / Slide Review NO; Basophils Absolute Auto 100 /uL (0-100); Eosinophils Absolute Auto 400 /uL (0-450); Eosinophils Percent Auto 3.4 % (2-4); Hematocrit 32.2 % (36-46); Hemoglobin 10.3 g/dL (12.0-16.0); Lymphocytes Absolute Auto 3400 /uL (1100-4500); Lymphocytes Percent Auto 31.7 % (25-40); Mean Corpuscular HGB Conc 31.9 % (30-36); Mean Corpuscular Hemoglobin 23.3 PG (26-34); Mean Corpuscular Volume 73.1 fL (80-100); Monocytes Absolute Auto 800 /uL (0-900); Monocytes Percent Auto 7.3 % (3-14); Neutrophils Absolute Auto 6100 /uL (1500-7000); Neutrophils Percent Auto 56.6 % (50-75); Platelet Count 385 X10^3/uL (150-400); Red Blood Cell Count 4.41 X10^6/uL (4.0-5.2); Red Cell Distribution Width 15.5 % (11.6-14.8); White Blood Cell Count 10.8 X10^3/uL (4.5-11.0)
[2023-08-11 20:08] LABS: Alanine Aminotransferase 23 IU/L (<35); Albumin 3.9 g/dL (3.5-5.0); Albumin Globulin Ratio 1.2 (1.0-2.8); Alkaline Phosphatase 86 U/L (38-126); Aspartate Aminotransferase 24 IU/L (14-36); BUN Creatinine Ratio 39.1 (6-22); Bilirubin Total 0.4 mg/dL (0.2-1.3); Blood Urea Nitrogen 34 mg/dL (7-17); Calcium 9.5 mg/dL (8.4-10.2); Carbon Dioxide 27 mmol/L (22-32); Chloride 102 mmol/L (98-107); Estimated Glomerular Filt Rate > 60 mL/min (>60); Globulin 3.3 g/dL (1.7-4.1); Glucose 137 mg/dL (80-110); HEMOLYSIS < 15 (0-50); Lipase 190 U/L (23-300); Potassium 4.6 mmol/L (3.4-5.1); Sodium 136 mmol/L (137-145); Total Protein 7.2 g/dL (6.3-8.2)
== END 2023-08-11 22:47 | disposition home or self-care (01) ==
PROVIDERS: Emergency Provider Emergency Medicine; Family Provider Family Medicine; PCP Family Medicine
DX: R10.9 Unspecified abdominal pain (principal); V89.2XXA Person injured in unspecified motor-vehicle accident, traffic, initial encounter
CPT/HCPCS: 36415; 74177; 80053; 81003; 83690; 85025; 99284; Q9967

== ENCOUNTER → 2023-10-25 15:32 | Outpatient (CLI) | payer MEDICARE, MEDICAID, SELFPAY ==
[2023-10-25 16:19] LABS: Hemoglobin A1C% w Est Avg Glu 7.1 % (4.0-6.0)
== END ==
PROVIDERS: Family Provider Family Medicine; PCP Family Medicine; Referring Provider Family Medicine; Visit Provider Family Medicine
DX: E11.65 Type 2 diabetes mellitus with hyperglycemia (principal)
CPT/HCPCS: 36415; 83036

== ENCOUNTER → 2023-11-06 14:23 | Outpatient (CLI) | payer MEDICARE, MEDICAID, SELFPAY | LOC: CAR 14:24 | PROVIDERS: Family Provider Family Medicine; PCP Family Medicine; Referring Provider Family Medicine; Visit Provider Family Medicine | DX: I48.91 Unspecified atrial fibrillation (principal) | CPT/HCPCS: 93246 ==

== ENCOUNTER → 2023-11-27 15:07 | Outpatient (CLI) | payer MEDICARE, MEDICAID, SELFPAY ==
--- NOTE | 2023-11-27 15:09 | DI.MG.S_ITS ---
BILATERAL DIGITAL SCREENING MAMMOGRAM 3D/2D WITH CAD: 11/27/2023 CLINICAL: Routine screening. Comparison is made to exams dated: 01/04/2022 mammogram, 10/19/2017 mammogram, and 09/23/2020 mammogram - [facility]. Both breasts are almost entirely fatty (category a/<25% glandular tissue). Current study was also evaluated with a Computer Aided Detection (CAD) system. There are benign calcifications in both breasts. No significant masses, calcifications, or other findings are seen in either breast. There has been no significant interval change. IMPRESSION: BENIGN There is no mammographic evidence of malignancy. A 1 year screening mammogram is recommended. Based on the Tyrer Cuzick model (a risk assessment model) the patient's lifetime risk is 3.3% and her 10 year risk is 1.6%. According to the ACR, ACS, and NCCN guidelines, an annual breast MRI exam along with mammogram is recommended if the patient's lifetime risk is 20% or greater. This exam was interpreted at Station ID: [id number]. NOTE: For mammograms, a report in lay terms will be sent to the patient. Approximately 15% of breast malignancies will not be visualized mammographically. In the management of a palpable breast mass, a negative mammogram must not discourage biopsy of a clinically suspicious lesion. Electronically Signed By: Daphne cordova/bina:11/28/2023 09:33:13 letter sent: Normal Exam ACR BI-RADS Category 2: Benign Finding(s) 3342F
== END ==
LOC: MAMMO 15:08
PROVIDERS: Family Provider Family Medicine; PCP Family Medicine; Referring Provider Family Medicine; Visit Provider Family Medicine
DX: Z12.31 Encounter for screening mammogram for malignant neoplasm of breast (principal); R92.313 Mammographic fatty tissue density, bilateral breasts
CPT/HCPCS: 77063; 77067

== ENCOUNTER → 2023-12-29 10:01 | Outpatient (CLI) | payer MEDICARE, MEDICAID, SELFPAY ==
--- NOTE | 2023-12-29 10:02 | DI.RAD.S_ITS ---
PROCEDURE: XR DEXA AXIAL SKELETON INDICATIONS: oseteopenia COMPARISON: None. FINDINGS: Lumbar Spine: Bone mineral density 1.442 g/cm2, T score 3.1. Left Hip: Bone mineral density 0.861 g/cm2, T score -0.7. Left Femoral Neck: Bone mineral density 0.661 g/cm2, T score -1.7. Right Hip: Bone mineral density 0.755 g/cm2, T score -1.5 Right Femoral Neck: Bone mineral density 0.602 g/cm2, T score -2.2. Fracture Risk Calculation (when applicable): 10-year fracture risk of a major osteoporotic fracture 10% and of a hip fracture 1.7%. (T score greater or equal to -1.0 to: NORMAL) (T score from -1.1 to -2.4: OSTEOPENIA) (T score less than or equal to -2.5: OSTEOPOROSIS) IMPRESSION: Osteopenia. Follow-up guidelines as follows: Osteoporosis: Consider a repeat DEXA and Vertebral Fracture Assessment (VFA) exam in 2 years or sooner if medically necessary, to reassess this patient's status. Osteopenia: Consider a repeat DEXA in 2-3 years to reassess this patient's status, or if there is a new clinical indication. Normal: Consider a repeat DEXA in 5 years or sooner, or if there is a new clinical indication. Dictated by: Duglas Schulte M.D. on 12/29/2023 at 15:19 Approved by: Duglas Schulte M.D. on 12/29/2023 at 15:22
== END ==
LOC: RAD 10:01
PROVIDERS: Family Provider Family Medicine; PCP Family Medicine; Referring Provider Family Medicine; Visit Provider Family Medicine
DX: M85.851 Other specified disorders of bone density and structure, right thigh (principal)
CPT/HCPCS: 77080

== ENCOUNTER → 2024-04-18 15:33 | Outpatient (CLI) | payer MEDICARE, MEDICAID, SELFPAY ==
[2024-04-18 15:49] LABS: Add Manual Diff / Slide Review NO; Basophils Absolute Auto 100 /uL (0-100); Basophils Percent Auto 0.6 % (0-2); Eosinophils Absolute Auto 400 /uL (0-450); Eosinophils Percent Auto 3.9 % (2-4); Hematocrit 29.8 % (36-46); Hemoglobin 9.6 g/dL (12.0-16.0); Lymphocytes Absolute Auto 2800 /uL (1100-4500); Lymphocytes Percent Auto 29.5 % (25-40); Mean Corpuscular HGB Conc 32.4 % (30-36); Mean Corpuscular Hemoglobin 25.6 PG (26-34); Mean Corpuscular Volume 79.2 fL (80-100); Monocytes Absolute Auto 800 /uL (0-900); Monocytes Percent Auto 8.7 % (3-14); Neutrophils Absolute Auto 5400 /uL (1500-7000); Neutrophils Percent Auto 57.3 % (50-75); Platelet Count 314 X10^3/uL (150-400); Red Blood Cell Count 3.76 X10^6/uL (4.0-5.2); White Blood Cell Count 9.4 X10^3/uL (4.5-11.0)
[2024-04-18 15:57] LABS: Hemoglobin A1C% w Est Avg Glu 6.6 % (4.0-6.0)
[2024-04-18 16:03] LABS: Alanine Aminotransferase 16 IU/L (<35); Albumin 3.9 g/dL (3.5-5.0); Albumin Globulin Ratio 1.4 (1.0-2.8); Alkaline Phosphatase 103 U/L (38-126); Aspartate Aminotransferase 23 IU/L (14-36); BUN Creatinine Ratio 20.5 (6-22); Bilirubin Total 0.4 mg/dL (0.2-1.3); Blood Urea Nitrogen 23 mg/dL (7-17); Calcium 9.2 mg/dL (8.4-10.2); Carbon Dioxide 25 mmol/L (22-32); Chloride 105 mmol/L (98-107); Estimated Glomerular Filt Rate 54 mL/min (>60); Globulin 2.7 g/dL (1.7-4.1); Glucose 98 mg/dL (80-110); HEMOLYSIS < 15 (0-50); Sodium 137 mmol/L (137-145); Total Protein 6.6 g/dL (6.3-8.2)
[2024-04-18 20:26] LABS: TSH w/ Reflex to FT4 1.74 uIU/mL (0.47-4.68)
== END ==
PROVIDERS: Family Provider Family Medicine; PCP Family Medicine; Referring Provider Family Medicine; Visit Provider Family Medicine
DX: E11.65 Type 2 diabetes mellitus with hyperglycemia (principal); I48.91 Unspecified atrial fibrillation
CPT/HCPCS: 36415; 80053; 83036; 84443; 85025

== ENCOUNTER → 2024-10-03 15:32 | Outpatient (CLI) | payer MEDICARE, MEDICAID, SELFPAY ==
[2024-10-03 16:36] LABS: Hemoglobin A1C% w Est Avg Glu 5.7 % (4.0-6.0)
[2024-10-03 17:12] LABS: Vitamin D 25 Hydroxy (D3) 70.1 ng/mL (30.0-100.0)
[2024-10-03 17:35] LABS: Vitamin B12 868 pg/mL (239-931)
== END ==
PROVIDERS: Family Provider Family Medicine; PCP Family Medicine; Referring Provider Physician Assistant; Visit Provider Physician Assistant
DX: E11.65 Type 2 diabetes mellitus with hyperglycemia (principal); E55.9 Vitamin D deficiency, unspecified; R42 Dizziness and giddiness; Z98.84 Bariatric surgery status; E53.8 Deficiency of other specified B group vitamins
CPT/HCPCS: 36415; 82306; 82607; 83036

== ENCOUNTER → 2024-11-28 08:18 | Outpatient (CLI) | payer MEDICARE, MEDICAID, SELFPAY ==
--- NOTE | 2024-11-28 08:19 | DI.MG.S_ITS ---
MM screening mammo BI: 11/28/2024. BI-RADS: 2 CLINICAL: 69-year old female for bilateral screening mammogram. Tyrer-Cuzick lifetime risk of 4.0%. No personal or first-degree family history of breast cancer. PRIOR EXAMS 11/27/2023, 01/04/2022, 09/23/2020, 10/19/2017, 09/22/2016, 08/21/2015. MAMMOGRAPHY TECHNIQUE: 2D and 3D (tomosynthesis) digital mammographic views obtained, with additional images as needed for full coverage. Current study was also evaluated with a Computer Aided Detection (CAD) system. DENSITY B. There are scattered areas of fibroglandular density. MAMMOGRAPHY FINDINGS Bilateral: Benign-appearing calcifications noted. There are no suspicious masses, calcifications, or other findings in the breast. IMPRESSION: * No evidence of malignancy with benign findings. RECOMMENDATIONS Bilateral * Annual screening mammography. OVERALL ASSESSMENT CATEGORY BI-RADS-2: Benign. The [employer] recommends annual screening mammography beginning at age 40 for women with average risk of breast cancer. ELECTRONICALLY SIGNED: Lola Srivastava M.D. on 11/28/2024 at 06:03:00 PM PT Interpreting Station ID: [id number]
== END ==
LOC: MAMMO 08:18
PROVIDERS: Family Provider Family Medicine; PCP Family Medicine; Referring Provider Family Medicine; Visit Provider Family Medicine
DX: Z12.31 Encounter for screening mammogram for malignant neoplasm of breast (principal); R92.1 Mammographic calcification found on diagnostic imaging of breast
CPT/HCPCS: 77063; 77067

== ENCOUNTER → 2025-03-24 11:06 | Outpatient (CLI) | payer MEDICARE, MEDICAID, SELFPAY ==
[2025-03-24 11:58] LABS: Add Manual Diff / Slide Review NO; Hematocrit 36.6 % (36-46); Hemoglobin 12.3 g/dL (12.0-16.0); Lymphocytes Absolute Auto 1900 /uL (1100-4500); Mean Corpuscular HGB Conc 33.5 % (30-36); Mean Corpuscular Hemoglobin 30.0 PG (26-34); Mean Corpuscular Volume 89.5 fL (80-100); Platelet Count 221 X10^3/uL (150-400)
[2025-03-24 12:00] LABS: Hemoglobin A1C% w Est Avg Glu 6.0 % (4.0-6.0)
[2025-03-24 12:18] LABS: Blood Urea Nitrogen 25 mg/dL (7-17); Calcium 9.4 mg/dL (8.4-10.2); Carbon Dioxide 28 mmol/L (22-32); Chloride 103 mmol/L (98-107); Cholesterol 122 mg/dL (140-199); Estimated Glomerular Filt Rate > 60 mL/min (>60); Glucose 93 mg/dL (70-99); HDL Cholesterol 66 mg/dL (40-60); HEMOLYSIS < 15 (0-50); Potassium 4.3 mmol/L (3.4-5.1); Sodium 137 mmol/L (137-145); Triglycerides 47 mg/dL (35-150)
[2025-03-24 12:52] LABS: Ferritin 16 ng/mL (11-264)
[2025-03-24 19:25] LABS: HEMOLYSIS < 15 (0-50); Iron 73 ug/dL (37-170)
[2025-03-24 19:42] LABS: Percent Iron Saturation 21 % (15-50); Total Iron Binding Capacity 348 ug/dL (265-497); Transferrin 282 mg/dL (206-381)
[2025-03-24 20:00] LABS: TSH w/ Reflex to FT4 0.29 uIU/mL (0.47-4.68)
[2025-03-24 21:59] LABS: Free T4, Direct Thyroxine 1.09 ng/dL (0.78-2.19)
== END ==
PROVIDERS: Family Provider Family Medicine; PCP Family Medicine; Referring Provider Family Medicine; Visit Provider Family Medicine
DX: E11.42 Type 2 diabetes mellitus with diabetic polyneuropathy (principal); I48.0 Paroxysmal atrial fibrillation; I10 Essential (primary) hypertension; E78.5 Hyperlipidemia, unspecified; K95.89 Other complications of other bariatric procedure; D50.8 Other iron deficiency anemias
CPT/HCPCS: 36415; 80048; 80061; 82728; 83036; 83540; 83550; 84439; 84443; 85025